=== PATIENT | male | born 1980 | race Caucasian/White ===

== ENCOUNTER 2017-04-15 16:45 | Emergency (ER) | payer SELFPAY ==
[2017-04-15 17:39] LABS: ALT (SGPT) 32 U/L (8-55); AST (SGOT) 33 U/L (5-34); Albumin 3.8 g/dL (3.5-5.0); Alkaline Phosphatase 78 U/L (40-150); Anion Gap 14 mmol/L (10-20); BUN (Urea Nitrogen) 16 mg/dL (8.9-20.6); Bilirubin, Total 0.5 mg/dL (0.2-1.2); CKMB 1.9 ng/mL (0-6.6); Calc. Creatinine Clearance 0 mL/min (70-130); Calcium 8.6 mg/dL (7.8-10.44); Chloride 98 mmol/L (98-107); Estimated GFR-MDRD 86; Globulin 2.5 g/dL (2.4-3.5); Glucose 119 mg/dL (70-105); Potassium 3.8 mmol/L (3.5-5.1); Protein, Total 6.3 g/dL (6.0-8.3); Sodium 134 mmol/L (136-145); Troponin I 0.018 ng/mL (< 0.028)
[2017-04-15 17:40] LABS: Carbon Dioxide 26 mmol/L (22-29)
[2017-04-15 17:43] LABS: #Basophils 0.1 thou/uL (0.0-0.2); #Lymphocytes 1.2 thou/uL (1.20-3.40); #Monocytes 0.6 thou/uL (0.11-0.59); #Neutrophils 7.1 thou/uL (1.40-6.50); %Basophils 0.9 % (0.0-1.0); %Lymphocytes 13.1 % (21.0-51.0); %Monocytes 6.6 % (0.0-10.0); %Neutrophils 79.3 % (42.0-75.0); Hemoglobin 14.8 g/dL (14.0-18.0); Mean Corpuscular HGB CONC 33.8 g/dL (32.0-36.0); Mean Corpuscular Hemoglobin 29.5 pg (27.0-31.0); Mean Corpuscular Volume 87.1 fl (80.0-94.0); Mean Platelet Volume 8.5 fL (7.4-10.4); Platelet Count 141 thou/uL (130-400); RBC Distribution Width 11.5 % (11.5-14.5); Red Blood Cell (RBC) Count 5.01 mill/uL (4.70-6.10)
--- NOTE | 2017-04-15 17:57 | CT ---
CT BRAIN WITHOUT CONTRAST 04/15/17 HISTORY: Numbness and tingling to the left side. FINDINGS: No evidence of acute infarct, hemorrhage, midline shift or abnormal pleural fluid collections are see n. The ventricular size is normal and the basilar cisterns are patent. The bony calvarium is intact. There is mucosal disease in the paranasal sinuses. IMPRESSION: No CT evidence of acute intracranial process. POS: [facility]
--- NOTE | 2017-04-15 17:59 | RAD ---
PA AND LATERAL VIEWS OF THE CHEST 04/15/17 HISTORY: Cough. FINDINGS: The heart size is normal. The aorta is tortuous. The lungs are well expanded without focal areas of c onsolidation, pneumothorax or pleural effusions. No acute osseous abnormalities are seen. IMPRESSION: No radiographic evidence of acute cardiopulmonary process. POS: [facility]
[2017-04-15] MEDS ORDERED: Acetaminophen 500 MG TAB ONE ×2 (18:03→20:30)
[2017-04-15] MEDS ORDERED: Benzonatate 100 MG CAP ONE (20:30)
--- NOTE | 2017-04-16 07:26 | CT ---
CERVICAL SPINE CT NONCONTRAST 04/15/17 INDICATION: Pain. FINDINGS: There is mild degenerative changes of the cervical spine. No evidence of acute fracture or significan t subluxation. Disc osteophyte complex formation is present most notable at the C3-4 level. Craniocer vical junction is intact. There is no acute facet malalignment or retropulsion of bone into the verte bral canal. IMPRESSION: No acute osseous abnormality cervical spine. There is mild degenerative change. POS: [facility]
== END 2017-04-15 20:32 | disposition home or self-care (01) ==
LOC: NAV ERS 16:45
DX: J10.1 Influenza due to other identified influenza virus with other respiratory manifestations (principal); F41.9 Anxiety disorder, unspecified; F31.9 Bipolar disorder, unspecified; F17.210 Nicotine dependence, cigarettes, uncomplicated
CPT/HCPCS: 36416; 70450; 71046; 72125; 80053; 82553; 84484; 85025; 85652; 86140; 93005

== ENCOUNTER 2021-04-09 14:19 | Emergency (ER) | payer SELFPAY ==
[2021-04-09] MEDS ORDERED: Meclizine HCl 25 MG TAB ONE (15:20)
== END 2021-04-09 16:43 | disposition home or self-care (01) ==
LOC: NAV ERS 14:19
DX: R42 Dizziness and giddiness (principal); F17.210 Nicotine dependence, cigarettes, uncomplicated
CPT/HCPCS: 70450; 93005

== ENCOUNTER 2021-06-12 15:19 | Emergency (ER) | payer SELFPAY ==
[2021-06-12] MEDS ORDERED: Ondansetron ODT 4 MG TAB ONE (16:08)
== END 2021-06-12 16:13 | disposition home or self-care (01) ==
LOC: NAV ERS 15:19
DX: R10.13 Epigastric pain (principal); F17.210 Nicotine dependence, cigarettes, uncomplicated
CPT/HCPCS: 99283; Q0162

== ENCOUNTER 2021-07-28 18:29 | Emergency (ER) | payer SELFPAY ==
[2021-07-28] MEDS ORDERED: Ondansetron PF 4 MG/2 ML Vial ONE (19:08)
[2021-07-28] MEDS ORDERED: Morphine 4 MG/ML VIAL ONE ×3 (19:08→21:09)
[2021-07-28 19:19] LABS: #Basophils 0.1 thou/uL (0.0-0.2); #Lymphocytes 1.7 thou/uL (1.20-3.40); #Monocytes 0.8 thou/uL (0.11-0.59); #Neutrophils 6.7 thou/uL (1.40-6.50); %Basophils 0.9 % (0.0-1.0); %Eosinophils 0.4 % (0.0-10.0); %Lymphocytes 18.3 % (21.0-51.0); %Monocytes 8.3 % (0.0-10.0); %Neutrophils 72.1 % (42.0-75.0); Hemoglobin 7.8 g/dL (14.0-18.0); Mean Corpuscular HGB CONC 29.5 g/dL (32.0-36.0); Mean Corpuscular Hemoglobin 29.6 pg (27.0-31.0); Mean Platelet Volume 8.6 fL (7.4-10.4); Platelet Count 124 thou/uL (130-400); RBC Distribution Width 18.1 % (11.5-14.5); Red Blood Cell (RBC) Count 2.63 mill/uL (4.70-6.10); White Blood Cell (WBC) Count 9.3 thou/uL (4.8-10.8)
[2021-07-28 19:39] LABS: ALT (SGPT) 55 U/L (8-55); AST (SGOT) 37 U/L (5-34); Albumin 2.8 g/dL (3.5-5.0); Alkaline Phosphatase 122 U/L (40-110); Anion Gap 19 mmol/L (10-20); BUN (Urea Nitrogen) 29 mg/dL (8.9-20.6); Bilirubin, Total 1.4 mg/dL (0.2-1.2); CK (CPK) 21 U/L (30-200); Calc. Creatinine Clearance 0 mL/min (70-130); Calcium 8.4 mg/dL (7.8-10.44); Carbon Dioxide 28 mmol/L (22-29); Chloride 98 mmol/L (98-107); Globulin 3.3 g/dL (2.4-3.5); Glucose 90 mg/dL (70-105); Lipase 105 U/L (8-78); Potassium 4.5 mmol/L (3.5-5.1); Protein, Total 6.1 g/dL (6.0-8.3); Sodium 140 mmol/L (136-145)
[2021-07-28] MEDS ORDERED: hydrALAZINE 20 MG/ML VIAL ONE (19:44)
[2021-07-28] MEDS ORDERED: Metoprolol Tartrate 5 MG/5 ML VIAL ONE ×3 (20:54→21:42)
[2021-07-28] MEDS ORDERED: Lorazepam 2 MG/ML VIAL ONE ×2 (21:40→21:56)
[2021-07-28] MEDS ORDERED: Diltiazem 125 MG/25 ML ONE (22:28)
[2021-07-28] MEDS ORDERED: Sodium Chloride 0.9% 100 ML ONE (22:29)
== END 2021-07-28 23:07 | disposition short-term general hospital (02) ==
LOC: NAV ERS 18:29
DX: J81.1 Chronic pulmonary edema (principal); R10.84 Generalized abdominal pain; R06.03 Acute respiratory distress; I10 Essential (primary) hypertension; F17.210 Nicotine dependence, cigarettes, uncomplicated; Z79.899 Other long term (current) drug therapy
CPT/HCPCS: 51703; 71045; 74176; 80053; 82550; 83605; 83690; 84484; 85025; 93005; 96365; 96375; 96376; J0360; J2060; J2270; J2405